=== PATIENT | male | born 1945 | race Caucasian/White ===

== ENCOUNTER 2018-11-12 13:14 | Day surgery (SDC) | payer BC ==
[~2018-11-12 13:14] MED LIST: Acetaminophen TAB* 325 MG PO PRN; Buffered Lidocaine 1% SYRIN* 1 ML/SYRINGE INTRADERM ONE
[2018-11-12] MEDS ORDERED: acetaZOLAMIDE TAB* 250 MG ONE (14:08)
[2018-11-12] MEDS ORDERED: Cyclopentolate 1% OPTH.SOL* 2 ML BTL ONE (14:08)
[2018-11-12] MEDS ORDERED: Povidone Iodine 5% OPTH* 30 ML BTL ONE (14:08)
[2018-11-12] MEDS ORDERED: Phenylephrine OPHTH SOL 2.5%* 2 ML ONE (14:08)
[2018-11-12] MEDS ORDERED: Lidocaine 1%* 5 ML VIAL ONE (14:08)
[2018-11-12] MEDS ORDERED: Ketorolac 0.5% OPHTH (NF) 0.5 % 5 ML BTL ONE (14:08)
[2018-11-12] MEDS ORDERED: Lidocaine 2% EPI 1:200000 MPF*10-20 ML VIAL ONE (14:08)
[2018-11-12] MEDS ORDERED: Proparacaine 0.5% OPHTH.SOL* 15 ML BTL ONE (14:08)
[2018-11-12] MEDS ORDERED: Neomycin/Polymy/Dex OPTH.SUSP* MAXITROL 0.1% 5 ML ONE (14:08)
[2018-11-12] MEDS ORDERED: Midazolam* 1 MG/ML 2 ML VIAL (2 MG) ONE (15:19)
--- NOTE | 2018-11-12 16:32 | OP ---
OPERATIVE NOTE: DATE OF OPERATION: 11/12/18 DATE OF : 45 SURGEON: Jesus Taylor M.D. PREOPERATIVE DIAGNOSIS: Cataract and glaucoma, right eye. POSTOPERATIVE DIAGNOSIS: Cataract and glaucoma, right eye. OPERATIVE PROCEDURE: Extracapsular cataract extraction with IOL and iStent, right eye. PROCEDURE: The patient was brought to the operating room after being given 1/2% Alcaine with epineph rine drops in the preoperative area. The eye was prepped and draped in the usual sterile fashion. S terile drape and eyelid speculum were placed. Again, topical 1/2% Alcaine with epinephrine was given . A paracentesis incision was made at the 9 o'clock position with the No.75 blade. Clear cornea inc ision 2.2 x 2.2-mm was created at the 12 o'clock position starting at the anterior limbus using the 2 .2-mm keratome. The anterior chamber was irrigated with 0.4 mL of 1% non-preservative intracameral l idocaine and filled with DisCoVisc. A capsulorrhexis was completed using the cystotome and the Utrat a forceps. Hydrodissection was performed with balanced salt solution. The lens nucleus was removed w ith the Phacoemulsification handpiece without incident. Cortex was removed with the irrigation-aspir ation handpiece. The capsular bag was re-inflated using DisCoVisc and an SN60WF 14.5 implant was ins erted with the shooter followed by an iStent inject placed at the 2 o'clock position without difficul ty; however, I was unable to place the 4 o'clock stent. The irrigation-aspiration handpiece was used to remove all residual DisCoVisc. The eye was refilled with balanced salt solution and the wound ch ecked and found to be watertight. Topical Maxitrol drops were given. [id number]/[facility] #: [id number]
[2018-11-12 16:52] VITALS: BP 138/53
== END 2018-11-12 16:30 | disposition home or self-care (01) ==
LOC: OREAST 13:14
PROVIDERS: ATTEND Specialist
DX: H25.11 Age-related nuclear cataract, right eye (principal); H40.1131 Primary open-angle glaucoma, bilateral, mild stage; I10 Essential (primary) hypertension; M19.90 Unspecified osteoarthritis, unspecified site; G47.33 Obstructive sleep apnea (adult) (pediatric); Z85.820 Personal history of malignant melanoma of skin; Z85.828 Personal history of other malignant neoplasm of skin
CPT/HCPCS: A9270-GY; C1783; J2250; V2632